=== PATIENT | male | born 1990 | race Native Hawaiian/Other Pacific Islander ===

== ENCOUNTER 2016-05-21 10:30 | Day surgery (SDC) | payer OTHER ==
[2016-05-16 10:29] VITALS: BMI 25.0
[2016-05-21 10:56] VITALS: RESP 18
[2016-05-21] MEDS ORDERED: Lidocaine 2% w Epi 1:100,000 Inj IJ ONE (12:09)
[2016-05-21] MEDS ORDERED: Hyaluronidase 200 UNITS/ML VIAL ONE (12:09)
[2016-05-21] MEDS ORDERED: Povidone Iodine 5% Opht SOLUTION ONE (12:10)
[2016-05-21] MEDS ORDERED: Midazolam 2 MG/2 ML VIAL ONE ×2 (13:40→13:52)
[2016-05-21] MEDS ORDERED: Tetracaine 0.5% Ophth 2 ML BOTTLE OD ONE (14:05)
[2016-05-21] MEDS ORDERED: Lactated Ringer's 1,000 ML IV ONE (14:20)
[2016-05-21 16:14] VITALS: BP 126/76; TEMP 98
[2016-05-21 16:16] VITALS: PULSE 67; O2SAT 98
--- NOTE | 2016-07-23 15:01 | OP ---
PROCEDURE DATE: 05/21/2016 PREOPERATIVE DIAGNOSIS: Granuloma of the tarsal conjunctivae of the right upper eyelid. POSTOPERATIVE DIAGNOSIS: Granuloma of the tarsal conjunctivae of the right upper eyelid. SURGEON: Reji Diaz MD PROCEDURE: Excision of the granuloma of the tarsal conjunctivae with a conjunctivoplasty. DESCRIPTION OF PROCEDURE: The patient was prepped and draped in the usual manner for sterile ophthal danae surgery. Under microsurgical control, the right upper lid was everted and with sharp and blunt d issection, the granuloma was excised from the tarsal conjunctivae. Hemostasis was obtained by compre ssion and cautery. A conjunctivoplasty was performed with a 6-0 absorbable Vicryl suture. This term inated the procedure. Maxitrol ophthalmic ointment was applied with a pressure patch and the patient was brought to postanesthesia with stable vital signs. Reji Diaz MD cc: 70 TT: 07/23/2016 15:00:55 uriel
== END 2016-05-21 16:00 | disposition home or self-care (01) ==
LOC: H.OPSURG 10:30
PROVIDERS: ATTEND Ophthalmology
DX: H11.221 Conjunctival granuloma, right eye (principal)